=== PATIENT | female | born 2000 | race Caucasian/White ===

== ENCOUNTER 2020-10-05 19:29 | Emergency (ER) | payer BC ==
[~2020-10-05] VITALS: Ht 165.1 cm; Wt 55.5 kg
[2020-10-05 19:35] VITALS: TEMP 98.7
[2020-10-05 19:58] LABS: BASO % 0.2 % (0.0-2.0); GRAN # 9.2 (1.4-6.5); GRAN % 85.6 % (42.2-75.2); HEMATOCRIT 41.1 % (37.0-47.0); LYMPH % 9.5 % (20.0-51.0); MEAN CELL VOLUME 90 fl (80.0-100.0); MEAN CORPUSCULAR HEMOGLOBIN 31 pg (27.0-31.0); MEAN CORPUSCULAR HGB CONC 34 g/dl (33.0-37.0); MEAN PLATELET VOLUME 9.3 fl (7.4-10.4); MONO # 0.5 (0.1-0.6); MONO % 4.5 % (1.7-9.3); PLATELET COUNT 257 K/mm3 (130-400); RED BLOOD COUNT 4.55 M/mm3 (4.10-5.30); REDCELL DISTRIBUTION WIDTH-CV 12.2 % (11.5-14.5)
[2020-10-05 20:12] LABS: BILIRUBIN,TOTAL 1.2 mg/dL (0.0-1.0); CALCIUM 10.1 mg/dL (8.4-10.2); CREATININE, serum 0.58 (0.52-1.25); POTASSIUM 3.7 mmol/L (3.4-5.0); TOTAL PROTEIN 8.8 gm/dL (6.4-8.2)
[2020-10-05 20:20] LABS: COLLECTION METHOD CLEAN CATCH
[2020-10-05 20:36] LABS: MUCOUS Present /lpf; PH 5 (5-8); SQUAMOUS EPITHELIAL 0-2 /hpf; URINE APPEARANCE Hazy; URINE BACTERIA None Seen /hpf; URINE BILIRUBIN Negative (NEGATIVE); URINE BLOOD 1+ (NEGATIVE); URINE COLOR Yellow; URINE GLUCOSE Negative (NEGATIVE); URINE KETONE 2+ (NEGATIVE); URINE LEUKOCYTE ESTERASE Negative (NEGATIVE); URINE NITRATE Negative (NEGATIVE); URINE PROTEIN(semi-quant) 2+ (NEGATIVE); URINE UROBILINOGEN Negative (NEGATIVE)
[2020-10-05] MEDS ORDERED: ZOFRAN ODT4 MG PO (21:28)
[2020-10-05 21:55] VITALS: BP 124/70; PULSE 81
== END 2020-10-05 21:48 | disposition home or self-care (01) ==
LOC: COL.ER 19:29
PROVIDERS: Emergency Medicine
DX: R11.2 Nausea with vomiting, unspecified (principal); R10.84 Generalized abdominal pain; Z90.49 Acquired absence of other specified parts of digestive tract
CPT/HCPCS: J2405; J2765; J7120